=== PATIENT | female | born 1960 | race Caucasian/White ===

== ENCOUNTER → 2016-10-01 | Outpatient (CLI) | payer OTHER ==
--- NOTE | 2016-10-01 16:18 | MR ---
MRI of the Thoracic Spine (Without Contrast) 0950 hours Reason for examination: Back pain with other chronic pain and left upper quadrant pain (M54.56, G 89. 29, R 10.12) Technique: Sagittal T1, FSE T2 2nd echo with fat suppression and STIR imaging. Axial T1 and FSE T2 2n d echo imaging with fat suppression. Findings: Thoracic alignment is anatomic. Disk spaces are well-maintained. The thoracic neural canal is normal in size. The thoracic cord looks normal. The conus medullaris occurs at T12-L1. Thoracic f oramen are widely patent. Incidental liver cysts are seen. Impression: Normal MRI of the thoracic spine.
--- NOTE | 2016-10-02 18:37 | MR ---
MRI Abdomen Without Contrast dated October 02, 2016 Indication: Left upper quadrant pain. Technique: FIESTA and T2 single shot fast spin-echo coronal and axial, axial T1 dual echo, axial LAVA and diffusion-weighted imaging. Comparison: CT of the abdomen and pelvis dated January 04, 2015 and July 11, 2009. Findings: No intraabdominal mass, lymphadenopathy, free fluid, or mesenteric edema. Large volume ludy ined stool throughout the colon is unchanged. No bowel wall edema or dilatation. The liver is normal size and contains numerous well-circumscribed T2 hyperintense cysts. No hepatic s teatosis or new liver lesion has developed since 2008. No biliary dilation. The partially compressed gallbladder is normal. No intraluminal stones or dependent sludge. The pancreas has normal signal intensity. No pancreatic mass or pancreatic duct dilatation. No hydronephrosis. A benign 8-mm angiomyolipoma in the anterior right midkidney on image 159 of the a xial T1 dual echo [id number] sequence is unchanged in size. The abdominal aorta is normal caliber. No bone marrow replacing lesions. Impression: 1. No intraabdominal mass, lymphadenopathy, or localized intraabdominal inflammatory process. 2. Constipation. 3. Numerous benign hepatic cysts are unchanged since 2008. 4. 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
== END ==
LOC: FIMAGING 08:43
PROVIDERS: ATTEND Family Medicine
DX: K59.00 Constipation, unspecified (principal); M54.6 Pain in thoracic spine; R10.12 Left upper quadrant pain

== ENCOUNTER 2017-10-09 10:45 | Day surgery (SDC) | payer OTHER ==
[2017-10-09] MEDS ORDERED: LIDOCAINE 1% 2 ML INJ ID PRN (11:58)
[2017-10-09] MEDS ORDERED: LR 1,000 ML IV ONE (11:58)
[2017-10-09] MEDS ORDERED: PROPOFOL/EMULSION 500 MG/50 ML BOTTLE IV ONE (13:06)
[2017-10-09] MEDS ORDERED: LIDOCAINE 2% 5 ML SDV ONE (13:06)
--- NOTE | 2017-10-09 13:11 | PDGENHP ---
History & Physical Chief Complaint: duodenal polyp History of Present Illness: 56 year old female presents for removal of a duodenal polyp seen on EGD Pertinent Past, Social, Family History: PMHx: hypothroidism, Oa, Ra. Surghx: brain surg Relevant Physical Exam: HEENT: anicteric. CV: RRR +s1s2. Lungs: CTAB. Abd: soft, nt, + bs. No guarding or rebound Cardiorespiratory Assessment: ASA 2
--- NOTE | 2017-10-09 13:15 | PDANEPAE ---
ANE Past Medical History - Cardiovascular History Hx Hypertension: No Hx Arrhythmias: No Hx Chest Pain: No Hx Coronary Artery / Peripheral Vascular Disease: No Hx CHF / Valvular Disease: No Hx Palpitations: No - Pulmonary History Hx COPD: No Hx Asthma/Reactive Airway Disease: No Hx Recent Upper Respiratory Infection: No Hx Oxygen in Use at Home: No Hx Sleep Apnea: No Sleep Apnea Screening Result - Last Documented: Negative - Neurologic History Hx Cerebrovascular Accident: No Hx Seizures: No Hx Dementia: No Neurologic History Comment: BRAIN MENINGIOMA WILL CONT TO MONITOR WITH MRI EVERY 6 MONTHS. JERMAINE LIMA NEUROLOGIST - Endocrine History Hx Diabetes: No - Renal History Hx Renal Disorders: Yes Renal History Comment: KIDNEY STONE PASSED ON HER OWN - Liver History Hx Hepatic Disorders: No - Neurological & Psychiatric Hx Hx Neurological and Psychiatric Disorders: No Neurological / Psychiatric History Comment: neuropathy, 2 benign meningiomas - Cancer History Hx Cancer: Yes Cancer History Comment: SKIN REMOVED 11/22/13 FROM LT PATRICIA,RT SHLDR,UMBILICAL AREA - Congenital Disorder History Hx Congenital Disorders: No - GI History Hx Gastrointestinal Disorders: Yes Gastrointestinal History Comment: IBS LIFELONG HX OF CONSTIPATION. 5 pre cancerous polyps removed from colon 2014 - Other Health History Other Health History: DJD, NUMBNESS RT HAND,MD HAS PT WEARING BRACE USES INTERMITTENTLY. MISSING TOOTH UPPER LEFT. VICKY LOWER MISSING TOOTH - Chronic Pain History Chronic Pain: Yes (degenertive left hip, numbness to both hands ddd) - Surgical History Prior Surgeries: RT BREAST BX 1988. thyroidectomy.basal cell removed. left leg shoulder and face ANE Review of Systems Review of Systems: - Exercise capacity METS (RN): 4 METS ANE Patient History - Allergies Allergies/Adverse Reactions: bee venom protein (honey bee) Allergy (Severe, Verified 09/06/17 11:36) Anaphylaxis spider venom Allergy (Severe, Verified 09/06/17 11:36) Anaphylaxis monosodium glutamate Allergy (Verified 01/04/15 05:14) - Home Medications Home Medications: Hydroxychloroquine Sulfate [Plaquenil 200 mg (*)] 01/04/15 [Last Taken 10/08/17 ] Levothyroxine [Synthroid 25 mcg (*)] 01/04/15 [Last Taken 10/09/17 07:00] Amitiza 09/06/17 [Last Taken 10/08/17] - NPO status NPO Since - Liquids (Date): 10/09/17 NPO Since - Liquids (Time): 19:00 NPO Since - Solids (Date): 10/08/17 NPO Since - Solids (Time): 15:00 - Smoking Hx Smoking Status: Never smoked - Family Anes Hx Family Hx Anesthesia Complications: unknown pt adopted ANE Labs/Vital Signs - Vital Signs Blood Pressure: 129/80 Heart Rate: 70 Respiratory Rate: 14 O2 Sat (%): 100 Height: 162.56 cm Weight: 47.627 kg ANE Physical Exam - Airway Neck exam: FROM Mallampati Score: Class 1 Mouth exam: normal dental/mouth exam, poor dentition - Pulmonary Pulmonary: no respiratory distress, no rales or rhonchi, clear to auscultation - Cardiovascular Cardiovascular: regular rate and rhythym, no murmur, rub, or gallop - ASA Status ASA Status: III ANE Anesthesia Plan Anesthesia Plan: GA with mask
[2017-10-09] MEDS ORDERED: LR 500 ML IV PRN (13:16)
[2017-10-09] MEDS ORDERED: METOCLOPRAMIDE 10 MG/2 ML VIAL IVP PRN (13:16)
[2017-10-09] MEDS ORDERED: fentaNYL 100 MCG/2 ML INJ IVP PRN (13:16)
[2017-10-09] MEDS ORDERED: DEXAMETHASONE 4 MG/ML VIAL IVP PRN (13:16)
[2017-10-09] MEDS ORDERED: NALOXONE HCL 0.4 MG/ML INJ IVP PRN (13:16)
[2017-10-09] MEDS ORDERED: ONDANSETRON 4 MG/2 ML VIAL IVP PRN (13:16)
[2017-10-09] MEDS ORDERED: PROMETHAZINE HCL 25 MG/ML INJ IVP PRN (13:16)
[2017-10-09] MEDS ORDERED: ALBUTEROL 3 ML DEYVIAL IH PRN (13:16)
[2017-10-09] MEDS ORDERED: INDOMETHACIN 50 MG SUPP PR PRN (13:38)
--- NOTE | 2017-10-09 13:41 | POSTANESTH ---
Post Anesthetic Evaluation Cardiovascular Status: Normal, Stable, Similar to Pre-Op Cond Respiratory Status: Normal, Stable, Similar to Pre-op Cond. Level of Consciousness/Mental Status: Can Participate in Eval Pain Control: Adequate, Prn Tx Ordered Nausea/Vomiting Control: Adequate, Prn Tx Ordered Complications Possibly Related to Anesthesia: None Noted
[2017-10-09] MEDS ORDERED: NS 500 ML IV SCH (13:45)
--- NOTE | 2017-10-09 13:51 | GIREPORT ---
[facility] Surgical Services - Endoscopy Department Patient Name: Soraya Marques Procedure Date: 10/09/2017 12:13 PM Patient Type: Outpatient Attending MD/ ER Physician: Amando Foster MD Procedure: Upper GI endoscopy Indications: Polyps in the duodenum Patient Profile: 56 year old female presents for EMR of a duodenal polyp. Providers: Amando Foster MD Medicines: Monitored Anesthesia Care Complications: No immediate complications. Estimated blood loss: Minimal. Description of Procedure: After obtaining informed consent, the endoscope was passed under direct vision. Throughout the procedure, the patient's blood pressure, pulse, and oxygen saturations were monitored continuously. The Endoscope was intro duced through the mouth, and advanced to the second part of duodenum. The [facility] er GI endoscopy was accomplished without difficulty. The patient tolerated th e procedure well. Findings: The examined esophagus was normal. A hiatal hernia was present. A single 25 mm sessile polyp was found in the duodenal bulb. Area was successfully injected with 2 mL saline for a lift polypectomy. The poly p was removed with a piecemeal technique using a hot snare. Resection and retrieval were complete. APC was then applied at the edges. Estimated Blood Loss: Estimated blood loss was minimal. Post Op Diagnosis: - Normal esophagus. - Hiatal hernia. - A single duodenal polyp. Resected and retrieved. Injected. Recommendation: - Discharge patient to home (with escort). - Resume previous diet. - Continue present medications. - Await pathology results. - Repeat upper endoscopy in 3 months. - Thank you for allowing me to participate in the care of your patient. Attending Participation: I personally performed the entire procedure. Amando Foster MD Amando Foster MD 10/09/2017 1:50:33 PM This report has been signed electronicallyAmando Foster MD Number of Addenda: 0 Note Initiated On: 10/09/2017 12:13 PM [email or web address]
[2017-10-09 15:07] VITALS: PULSE 72; RESP 16; TEMP 97.5
[2017-10-09 15:13] VITALS: BP 121/79; O2SAT 100
== END 2017-10-09 15:35 | disposition home or self-care (01) ==
LOC: FSGY 10:45
PROVIDERS: ATTEND Internal Medicine Gastroenterology
PROC: 0DB98ZX Excision of Duodenum, Via Natural or Artificial Opening Endoscopic, Diagnostic (ICD-10-PCS; principal; 2017-10-09 13:00)
DX: K31.7 Polyp of stomach and duodenum (principal); K44.9 Diaphragmatic hernia without obstruction or gangrene
CPT/HCPCS: J2704

== ENCOUNTER 2017-10-23 10:06 | Emergency (ER) | payer OTHER ==
[2017-10-23 10:15] VITALS: RESP 16; TEMP 98.2
--- NOTE | 2017-10-23 10:35 | EDPHY ---
HPI/HX/ROS/PE/MDM Narrative: CHIEF COMPLAINT: Headache, spinal pain, chills HISTORY OF PRESENT ILLNESS: The patient is a 57 y/o female with rheumatoid arthritis, meningioma, and degenerative disc disease complaining of waxing and waning headache, spinal pain , and chills for the last 3-4 days. She describes feeling "cold and pain in my spine from the base of my neck to half way down." Her pain extends from her neck to her mid thoracic spine and is much worse at night and usually around an 8/10 in severity causing difficulty sleeping. She describes having "chills in my spine." This morning she developed mild rhinorrhea and nausea. She feels generally fatigued as well. She has baseline tingling and numbness in her limbs from her neuropathy and is unable to tell if it feels different since developing this back pain. Her headache is currently a 4/10 in severity. She has not taken anything for pain. She also notes she had an endoscopy recently 2 weeks ago with duodenal polyp removal. No documented fever, no shortness of breath, no pleuritic component of pain. No cough, sore throat, chest pain, shortness of breath, palpitations, vomiting, diarrhea, urinary complaints, lightheadedness. REVIEW OF SYSTEMS: Aside from elements discussed in the HPI, a comprehensive 10-point review of systems was reviewed and is negative. PAST MEDICAL HISTORY: 1. Thyroid cancer status post thyroidectomy - Levothyroxine 2. Rheumatoid arthritis - Plaquenil 3. Osteoarthritis 4. Degenerative disc disease 5. Neuropathy 6. Osteoporosis 7. Right frontal meningioma SOCIAL HISTORY: Never smoker. No history of IV drug abuse. VITAL SIGNS: Reviewed by me GENERAL: Well-developed, well-nourished, resting comfortably in no respiratory distress. HEENT: Atraumatic. Eyes: No icterus, no injection. Mouth: moist mucous membranes. No erythema or lesions. Neck: supple with no adenopathy. No meningismus, neg Kernig, negative Brudzinski's. Supple. LUNGS: Clear to auscultation bilaterally, no wheezes, rhonchi or rales. CARDIAC: Regular rate and rhythm, no rubs, murmurs or gallops. ABDOMEN: Soft, nontender, nondistended, bowel sounds normal. BACK: Pin point tenderness of thoracic spine around T6. No cervical spine tenderness. No CVA tenderness. EXTREMITIES: No trauma. No edema. Range of motion is normal throughout. NEURO: Alert and oriented, motor strength 5/5 in all extremities. Sensation intact to light touch. SKIN: Warm and dry, no rash. PSYCHIATRIC: Normal mentation, no agitation. Portions of this note were transcribed by a expert medical writer. I personally performed a history, physical exam, medical decision making, and confirmed accuracy of information the transcribed note. ED Course: This is a 57 y/o female with rheumatoid arthritis and known meningioma who presents with a few-day history of headache, spinal pain, and "chills" in her spine. She is afebrile here. She has some midthoracic tenderness around T6 on exam. No visible trauma or rash. Plan for IV, labs, chest x-ray, and IV fluids. Patient declined any pain medication or lidocaine patch. Patient has recently had a endoscopic biopsy. ED evaluation included labs, influenza swab and CXR. Chest x-ray: airways disease, nothing acute. Normal aortic contour. No infiltrate. Influenza negative. ESR normal and CRP normal. Patient continues to c/o significant mid tspine discomfort and a feeling of chills in her spine. Will further evaluate for discitis, epidural abscess, spinal pathology to account for focal discomfort in setting of no trauma. Also c/o headache and concerned regarding meningioma. Head CT negative for acute findings. Stable meningioma. Thoracic spine MRI: negative. Results discussed with patient. She is comfortable being discharged with medications to use as directed. Would prefer not to take oral meds; lidocaine patch applied. Will follow up and return if worsening symptoms. MDM: Diff dx considered included pneumonia, influenza, spinal pathology, epidural abscess, discitis, occult trauma, pathologic fracture, intrathoracic pathology. - Data Points Imaging Results: Imaging Impressions Chest X-Ray 10/23/17 10:41 Impression: Findings consistent with airways disease are seen with no superimposed acute abnormality identified. Thoracic Spine MRI 10/23/17 11:59 Impression: 1. Minimal degenerative disk disease in the midthoracic spine. 2. No disk herniations, central canal stenosis, neural foraminal stenosis or cord compression. 3. Normal thoracic spinal cord without enhancing lesions. 4. No diskitis, osteomyelitis, epidural abscess, or enhancing masses. Findings and recommendations discussed with Emergency Department physician, Dr. Angelique Aleman at 1455 hours on October 23, 2017. Final report concurs with initial preliminary interpretation. Head CT 10/23/17 12:00 Impression: 1. No acute intracranial findings. 2. Stable 11 mm right frontal parafalcine meningioma. Findings discussed with Angelique Aleman MD 10/23/2017 at 13:22. Imaging: Discussed imaging studies w/ scoring machine operator Radiologist, I viewed and interpreted images myself Laboratory Results: Laboratory Results 10/23/17 10:50 10/23/17 10:50 10/23/17 10/23/17 10/23/17 10:50 10:50 10:50 WBC 5.41 10^3/uL 10^3/uL (3.80-9.50) RBC 4.73 10^6/uL 10^6/uL (4.18-5.33) Hgb 14.4 g/dL g/dL (12.6-16.3) Hct 42.1 % % (38.0-47.0) MCV 89.0 fL fL (81.5-99.8) MCH 30.4 pg pg (27.9-34.1) MCHC 34.2 g/dL g/dL (32.4-36.7) RDW 13.9 % % (11.5-15.2) Plt Count 304 10^3/uL 10^3/uL (150-400) MPV 9.9 fL fL (8.7-11.7) Neut % (Auto) 41.4 % % (39.3-74.2) Lymph % (Auto) 46.6 % H % (15.0-45.0) [place] % (Auto) 9.6 % % (4.5-13.0) Eos % (Auto) 1.5 % % (0.6-7.6) Baso % (Auto) 0.7 % % (0.3-1.7) Nucleat RBC Rel Count 0.0 % % (0.0-0.2) Absolute Neuts (auto) 2.24 10^3/uL 10^3/uL (1.70-6.50) Absolute Lymphs (auto) 2.52 10^3/uL 10^3/uL (1.00-3.00) Absolute Monos (auto) 0.52 10^3/uL 10^3/uL (0.30-0.80) Absolute Eos (auto) 0.08 10^3/uL 10^3/uL (0.03-0.40) Absolute Basos (auto) 0.04 10^3/uL 10^3/uL (0.02-0.10) Absolute Nucleated RBC 0.00 10^3/uL 10^3/uL (0-0.01) Immature Gran % 0.2 % % (0.0-1.1) Immature Gran # 0.01 10^3/uL 10^3/uL (0.00-0.10) ESR 12 MM/HR MM/HR (0-30) Sodium 144 mEq/L mEq/L (135-145) Potassium 4.5 mEq/L mEq/L (3.5-5.2) Chloride 107 mEq/L mEq/L (97-110) Carbon Dioxide 21 mEq/l L mEq/l (22-31) Anion Gap 16 mEq/L mEq/L (8-16) BUN 14 mg/dL mg/dL (7-23) Creatinine 0.8 mg/dL mg/dL (0.6-1.0) Estimated GFR > 60 Glucose 96 mg/dL mg/dL (70-100) Calcium 9.8 mg/dL mg/dL (8.5-10.4) Troponin I < 0.012 ng/mL ng/mL (0.000-0.034) C-Reactive Protein < 5.0 mg/L mg/L (<10.0) Nasal Influenza A PCR NEGATIVE FOR FLU A (NEGATIVE) Nasal Influenza B PCR NEGATIVE FOR FLU B (NEGATIVE) Medications Given: Discontinued Medications Sodium Chloride (Ns) 500 mls @ 0 mls/hr IV EDNOW ONE; Wide Open PRN Reason: Protocol Stop: 10/23/17 10:42 Last Admin: 10/23/17 10:59 Dose: Not Given Sodium Chloride (Ns) 1,000 mls @ 0 mls/hr IV ONCE ONE; Wide Open PRN Reason: Protocol Stop: 10/23/17 10:43 Last Admin: 10/23/17 10:53 Dose: 1,000 mls Lidocaine (Lidoderm 5%) 1 ea TD EDNOW ONE Stop: 10/23/17 15:13 Last Admin: 10/23/17 15:26 Dose: 1 ea General Time Seen by Provider: 10/23/17 10:18 Initial Vital Signs: Initial Vital Signs Temperature (C) 36.8 C 10/23/17 10:12 Heart Rate 80 10/23/17 10:12 Respiratory Rate 16 10/23/17 10:12 Blood Pressure 102/77 10/23/17 10:12 O2 Sat (%) 99 10/23/17 10:12 O2 Delivery Mode Room Air Allergies/Adverse Reactions: bee venom protein (honey bee) Allergy (Severe, Verified 10/23/17 10:15) Anaphylaxis spider venom Allergy (Severe, Verified 10/23/17 10:15) Anaphylaxis monosodium glutamate Allergy (Verified 10/23/17 10:15) Home Medications: Medication Instructions Recorded Hydroxychloroquine Sulfate 01/04/15 [Plaquenil 200 mg (*)] Levothyroxine [Synthroid 25 mcg 01/04/15 (*)] Amitiza 09/06/17 Departure - Departure Disposition: Home, Routine, Self-Care Clinical Impression: Chills Headache Qualifiers: Headache type: unspecified Headache chronicity pattern: acute headache Intractability: not intractable Qualified Code(s): R51 - Headache Thoracic back pain Qualifiers: Chronicity: acute Back pain laterality: unspecified Qualified Code(s): M54.6 - Pain in thoracic spine Condition: Good Instructions: Acute Headache (ED), Back Pain (ED) Additional Instructions: 1. Use ibuprofen or Tylenol as directed for pain or fever over the next few days. You been given a lidocaine patch in the emergency department. If this provide some relief, they are available [id number]. 2. Follow up with your primary care provider for recheck in the next few days. 3. Return to the ED for worsening of condition. Adult Pain & Fever Control: We recommend Acetaminophen (Tylenol) and Ibuprofen (Motrin,Advil) for pain and fever control. When fever is high or pain severe, both drugs can be used at the same time, but at different intervals. Please note the time differences. Your dose is: Acetaminophen 650mg every 4 to 6 hours Ibuprofen 600mg every 6-8 hours with food Note: do not take Acetaminophen with Hydrocodone (Vicodin, Lortab) or Oxycodone (Percocet). These medications also contain Acetaminophen. No more than 3000mg of Acetaminophen should be taken in 24 hours (for an adult). Referrals: Elli Girard MD [Primary Care Provider] - As per Instructions Report Scribed for: Angelique Aleman Report Scribed by: Elis Butt Date of Report: 10/23/17 Time of Report: 10:41
[2017-10-23] MEDS ORDERED: NS 500 ML IV ONE (10:41)
[2017-10-23] MEDS ORDERED: NS 1,000 ML IV ONE (10:42)
[2017-10-23 11:05] LABS: PLATELET COUNT 304 10^3/uL (150-400)
[2017-10-23] MEDS ORDERED: GADOBUTROL 10 ML VIAL IVP ONE (13:22)
[2017-10-23] MEDS ORDERED: LIDOCAINE 5% 1 EA PATCH TD ONE (15:12)
[2017-10-23 15:32] VITALS: BP 123/74; PULSE 70; O2SAT 96
[2017-10-23] MEDS ORDERED: PATCH REMOVAL 1 EA PATCH TD SCH (21:00)
== END 2017-10-23 15:30 | disposition home or self-care (01) ==
DX: R51 Headache (principal); M54.6 Pain in thoracic spine; R68.83 Chills (without fever); E86.9 Volume depletion, unspecified; Z85.850 Personal history of malignant neoplasm of thyroid
CPT/HCPCS: 70450; 71046; 72157; 99285; A9585

== ENCOUNTER 2018-01-01 11:33 | Day surgery (SDC) | payer OTHER ==
[2018-01-01] MEDS ORDERED: LR 1,000 ML IV ONE (13:15)
[2018-01-01] MEDS ORDERED: INDOMETHACIN 50 MG SUPP PR PRN (13:47)
--- NOTE | 2018-01-01 13:47 | PDGENHP ---
History & Physical Chief Complaint: duodenal polyp History of Present Illness: 57 year old female presents for surveillance of a complex duodenal polyp Pertinent Past, Social, Family History: PMHx: hypothyroid. PSurgHx: thyroidectomy, lung bx Relevant Physical Exam: HEENT: anicteric. CV: RRR +s1s2. lungs: CTAB. Abd: soft, nt + Bs. No g/r Cardiorespiratory Assessment: ASA 2
[2018-01-01] MEDS ORDERED: NS 500 ML IV SCH (14:00)
--- NOTE | 2018-01-01 15:07 | PDANEPAE ---
ANE History of Present Illness 57 F presents for EGD. ANE Past Medical History - Cardiovascular History Hx Hypertension: No Hx Arrhythmias: No Hx Chest Pain: No Hx Coronary Artery / Peripheral Vascular Disease: No Hx CHF / Valvular Disease: No Hx Palpitations: No - Pulmonary History Hx COPD: No Hx Asthma/Reactive Airway Disease: No Hx Recent Upper Respiratory Infection: No Hx Oxygen in Use at Home: No Hx Sleep Apnea: No Sleep Apnea Screening Result - Last Documented: Negative - Neurologic History Hx Cerebrovascular Accident: No Hx Seizures: No Hx Dementia: No Neurologic History Comment: BRAIN MENINGIOMA WILL CONT TO MONITOR WITH MRI EVERY [address] John Perry NEUROSURGEON. - Endocrine History Hx Diabetes: No Hypothyroid: Yes Hyperthyroid: No Obesity: no Endocrine History Comment: thyroid supplement - Renal History Hx Renal Disorders: Yes Renal History Comment: KIDNEY STONE PASSED ON HER OWN - Liver History Hx Hepatic Disorders: No - Neurological & Psychiatric Hx Hx Neurological and Psychiatric Disorders: No Neurological / Psychiatric History Comment: neuropathy, 2 benign meningiomas, lower lumbar -DDD - Cancer History Hx Cancer: Yes Cancer History Comment: THYROID-STAGE 3 09/26;SKIN REMOVED 11/22/13 FROM LT PATRICIA, RT SHLDR,UMBILICAL AREA - Congenital Disorder History Hx Congenital Disorders: No - GI History Hx Gastrointestinal Disorders: Yes Gastrointestinal History Comment: IBS LIFELONG HX OF CONSTIPATION-much improved w/Amitiza. 5 pre cancerous polyps removed from colon 2014;. polyp removed duodenum -18; - Other Health History Other Health History: DJD,OA, NUMBNESS Bilat HANDS,MD HAS PT WEARING BRACE USES INTERMITTENTLY. MISSING TOOTH UPPER LEFT. VICKY LOWER MISSING TOOTH - Chronic Pain History Chronic Pain: Yes (degenertive left hip, numbness to both hands ddd) - Surgical History Prior Surgeries: RT BREAST BX 1988. thyroidectomy.basal cell removed. left leg shoulder and face ANE Review of Systems Review of systems is: negative Review of Systems: - Exercise capacity Exercise capacity: >=4 METS METS (RN): 4 METS ANE Patient History - Allergies Allergies/Adverse Reactions: bee venom protein (honey bee) Allergy (Severe, Verified 12/12/17 10:23) Anaphylaxis spider venom Allergy (Severe, Verified 12/12/17 10:23) Anaphylaxis monosodium glutamate Allergy (Verified 12/12/17 10:23) - Home Medications Home medications: home medication list seen and reviewed Home Medications: Hydroxychloroquine Sulfate [Plaquenil 200 mg (*)] 01/04/15 [Last Taken 12/30/17 ] Levothyroxine [Synthroid 25 mcg (*)] 01/04/15 [Last Taken 01/01/18] Amitiza 09/06/17 [Last Taken 12/31/17] - NPO status NPO Status: no food or drink >8 hours NPO Since - Liquids (Date): 01/01/18 NPO Since - Liquids (Time): 06:00 NPO Since - Solids (Date): 12/31/17 NPO Since - Solids (Time): 18:00 - Anes Hx Anes Hx: no prior problems - Smoking Hx Smoking Status: Never smoked Marijuana use: No - Alcohol Use Alcohol Use: Rarely - Family Anes Hx Family Anes Hx: none Family Hx Anesthesia Complications: unknown pt adopted ANE Labs/Vital Signs - Vital Signs Vital Signs: reviewed preoperatively; see RN documention for details Blood Pressure: 110/65 Heart Rate: 71 Respiratory Rate: 16 O2 Sat (%): 100 Height: 162.56 cm Weight: 49.895 kg ANE Physical Exam - Airway Neck exam: FROM Mallampati Score: Class 2 Mouth exam: normal dental/mouth exam - Pulmonary Pulmonary: no respiratory distress - Cardiovascular Cardiovascular: regular rate and rhythym - ASA Status ASA Status: II ANE Anesthesia Plan Anesthesia Plan: GA with mask Total IV Anesthesia: Yes
[2018-01-01] MEDS ORDERED: ONDANSETRON 4 MG/2 ML VIAL IVP PRN (15:27)
[2018-01-01] MEDS ORDERED: fentaNYL 100 MCG/2 ML INJ IVP PRN (15:27)
[2018-01-01] MEDS ORDERED: LR 500 ML IV PRN (15:27)
[2018-01-01] MEDS ORDERED: NALOXONE HCL 0.4 MG/ML INJ IVP PRN (15:27)
[2018-01-01] MEDS ORDERED: PHENYLEPHRINE HCL 100 MCG/ML SYR IVP PRN (15:27)
[2018-01-01] MEDS ORDERED: PROPOFOL/EMULSION 500 MG/50 ML BOTTLE IV ONE (15:30)
--- NOTE | 2018-01-01 16:01 | GIREPORT ---
[facility] Surgical Services - Endoscopy Department Patient Name: Soraya Marques Procedure Date: 01/01/2018 3:16 PM Patient Type: Outpatient Attending MD/ ER Physician: Amando Foster MD Procedure: Upper GI endoscopy Indications: Follow-up of polyps in the duodenum Patient Profile: 57 year old female presents for surveillance of a duodenal bulb polyp. Providers: Amando Foster MD Medicines: Monitored Anesthesia Care Complications: No immediate complications. Estimated blood loss: Minimal. Description of Procedure: After obtaining informed consent, the endoscope was passed under direct vision. Throughout the procedure, the patient's blood pressure, pulse, and oxygen saturations were monitored continuously. The Endoscope was intro duced through the mouth, and advanced to the second part of duodenum. The up er GI endoscopy was accomplished without difficulty. The patient tolerated th e procedure well. Findings: The examined esophagus was normal. A hiatal hernia was present. A single 2 mm sessile polyp was found in the duodenal bulb in the area of the prior polypectomy. The polyp was removed with a cold snare. Resecti on and retrieval were complete. Localized nodular mucosa was found in the duodenal bulb on both the ant erior and posterior wall. Gastric heterotopia vs other? Biopsies were taken w ith a cold forceps for histology. The second portion of the duodenum was norm al in appearance. Estimated Blood Loss: Estimated blood loss was minimal. Post Op Diagnosis: - Normal esophagus. - Hiatal hernia. - A single duodenal polyp. Resected and retrieved. - Nodular mucosa in the duodenal bulb. Biopsied. Recommendation: - Discharge patient to home (with escort). - Resume previous diet. - Continue present medications. - Repeat upper endoscopy in 6 months for surveillance. - Await pathology results. - Thank you for allowing me to participate in the care of your patient. Attending Participation: I personally performed the entire procedure. Amando Foster MD Amando Foster MD 01/01/2018 4:01:33 PM This report has been signed electronicallyAmando Foster MD Number of Addenda: 0 Note Initiated On: 01/01/2018 3:16 PM [email or web address]
[2018-01-01 17:01] VITALS: BP 117/71
--- NOTE | 2018-01-01 22:58 | POSTANESTH ---
Post Anesthetic Evaluation Cardiovascular Status: Normal, Stable, Similar to Pre-Op Cond Respiratory Status: Normal, Stable, Similar to Pre-op Cond. Level of Consciousness/Mental Status: Can Participate in Eval, Alert and Oriented Pain Control: Adequate, Prn Tx Ordered Nausea/Vomiting Control: Adequate, Prn Tx Ordered Complications Possibly Related to Anesthesia: None Noted
== END 2018-01-01 17:08 | disposition home or self-care (01) ==
LOC: FSGY 11:33
PROVIDERS: ATTEND Internal Medicine Gastroenterology
PROC: 0DB98ZX Excision of Duodenum, Via Natural or Artificial Opening Endoscopic, Diagnostic (ICD-10-PCS; principal; 2018-01-01 14:00)
DX: K63.89 Other specified diseases of intestine (principal); K44.9 Diaphragmatic hernia without obstruction or gangrene; K58.1 Irritable bowel syndrome with constipation; Z85.850 Personal history of malignant neoplasm of thyroid; Z85.828 Personal history of other malignant neoplasm of skin
CPT/HCPCS: J2704